=== PATIENT | female | born 1975 | race Two or more races ===

== ENCOUNTER 2017-06-07 01:55 | Emergency (ER) | payer OTHER ==
[2017-06-07] MEDS ORDERED: KETOROLAC TROMETHAMINE 30 MG/1 ML VIAL IM ONE (02:19)
[2017-06-07] MEDS ORDERED: diazePAM 5 MG TABLET PO ONE (02:19)
--- NOTE | 2017-06-07 02:24 | PDOC ---
History of Present Illness - General Chief Complaint: Pain, Acute Stated Complaint: R LEG PAIN Time Seen by Provider: 06/07/17 02:10 History Source: Patient - History of Present Illness Initial Comments: 06/07/17 02:21 41-year-old female complaining of right posterior knee pain worse with movement and extension since last night. Patient reports sitting with legs crossed for several hours at home while doing schoolwork several hours prior to presentation. Patient denies OCP use, shortness of breath, chest pain, pleuritic chest pain. Denies nausea vomiting diarrhea and abdominal pain. Patient has a past medical history of von Willebrand disease. Currently on no daily medication Modifying Factors: improves with: immobilization Extremity Pain Location - Extremity Pain Location Extremity Pain Locations: right: knee (posterior knee) Past History - Past Medical History Allergies/Adverse Reactions: Allergies Allergy/AdvReac Type Severity Reaction Status Date / Time neomycin [Neomycin] Allergy Verified 01/04/14 20:26 Home Medications: Ambulatory Orders Cyclobenzaprine HCl [Flexeril -] 10 mg PO TID PRN #14 tablet 06/07/17 Ibuprofen [Motrin -] 600 mg PO QID PRN #20 tablet 06/07/17 Other medical history: Von willebrand disease - Suicide/Smoking/Psychosocial Hx Smoking History: Never smoked Review of Systems - Review of Systems Able to Perform ROS?: Yes Is the patient limited [place]ian proficient: No Musculoskeletal: Yes: Muscle Pain (right posterior knee pain) *Physical Exam - Physical Exam General Appearance: Yes: Appropriately Dressed Respiratory/Chest: positive: Lungs Clear, Normal Breath Sounds Musculoskeletal: positive: Normal Inspection, Other (right knee pain with extension) Extremity: positive: Normal Inspection, Other (+ pedal pulse no pedal edema) Integumentary: positive: Normal Color, Dry, Warm Neurologic: positive: Fully Oriented, Alert Progress Note - Progress Note Progress Note: A; Muscle spasm P: toradol , muscle relaxant pain improved after medication. *DC/Admit/Observation/Transfer Diagnosis at time of Disposition: Muscle spasm of right lower extremity - Discharge Dispostion Disposition: HOME - Prescriptions Prescriptions: Cyclobenzaprine HCl [Flexeril -] 10 mg PO TID PRN #14 tablet PRN Reason: Muscle Spasms Ibuprofen [Motrin -] 600 mg PO QID PRN #20 tablet PRN Reason: Moderate Pain - Referrals - Patient Instructions Printed Discharge Instructions: Muscle Strain Additional Instructions: gently stretch as much as possible. take ibuprofen every 6 hours as needed for pain take flexeril as prescribed. follow up with your doctor as soon as possible. return to the ER if symptoms worsen. - Post Discharge Activity Forms/Work/School Notes: Back to Work
[2017-06-07] MEDS ORDERED: KETOROLAC TROMETHAMINE 30 MG/1 ML VIAL ONE (02:40)
[2017-06-07] MEDS ORDERED: diazePAM 5 MG TABLET ONE (02:40)
[2017-06-07 02:47] VITALS: BP 149/67; PULSE 74; TEMP 98; BMI 33.7
== END 2017-06-07 03:59 | disposition home or self-care (01) ==
LOC: JER 01:55
PROC: 3E0233Z Introduction of Anti-inflammatory into Muscle, Percutaneous Approach (ICD-10-PCS; principal; 2017-06-07)
DX: M62.838 Other muscle spasm (principal)
CPT/HCPCS: 99281-25